=== PATIENT | female | born 1965 | race African-American/Black ===

== ENCOUNTER 2017-04-13 19:21 | Emergency (ER) | payer MEDICAID ==
[~2017-04-13] VITALS: Ht 172.7 cm; Wt 92.3 kg
[~2017-04-13 19:21] MED LIST: CLIN200T PO; Z.0.NO CURRENT MEDS
[2017-04-13 19:24] VITALS: BP 134/84; PULSE 88; RESP 16; TEMP 99; O2SAT 98
[2017-04-13] MEDS ORDERED: IBUP800T23 PO (21:47)
[2017-04-13] MEDS ORDERED: TYLETAB34 PO (21:47)
[2017-04-13] MEDS ORDERED: [UNRECOGNIZED DRUG - CODE] (21:47)
[2017-04-13] MEDS ORDERED: NYST15T TOPICAL (21:47)
[2017-04-13] MEDS ORDERED: LIDO1PAD52 TOPICAL (21:47)
[2017-04-13] MEDS ORDERED: MUPI2OIN TOPICAL (21:47)
[2017-04-13] MEDS ORDERED: HYDR12.57 PO (21:47)
[2017-04-13] MEDS ORDERED: AMIT10TA6 PO (21:47)
[2017-04-13] MEDS ORDERED: DETR4CAP PO (21:47)
[2017-04-13] MEDS ORDERED: ROPI.25 PO (21:47)
[2017-04-13] MEDS ORDERED: BLOO1STR (21:47)
[2017-04-13] MEDS ORDERED: CYAN100025 SL (21:47)
[2017-04-13] MEDS ORDERED: LIPI40TA PO (21:54)
[2017-04-13] MEDS ORDERED: METF500T PO (21:54)
[2017-04-13] MEDS ORDERED: KETO2CRE TOPICAL (21:54)
[2017-04-13] MEDS ORDERED: [UNRECOGNIZED DRUG - CODE] PO (21:54)
[2017-04-13] MEDS ORDERED: VENL1CAP38 PO (21:54)
[2017-04-13] MEDS ORDERED: FLUT1SPR5 EACH NARE (21:54)
[2017-04-13] MEDS ORDERED: VOLT1GEL4 (21:54)
[2017-04-13] MEDS ORDERED: KENAAER TOPICAL (21:54)
[2017-04-13] MEDS ORDERED: GABA600T PO (21:54)
[2017-04-13] MEDS ORDERED: TRAZ100T6 PO (21:54)
[2017-04-13] MEDS ORDERED: DEXAMETHASONE SOD PHOS 4 MG/ML VIAL IM ONE (22:00)
[2017-04-13] MEDS ORDERED: HYDROmorphone HCL PF 1 MG/ML VIAL SQ ONE (22:00)
[2017-04-13] MEDS ORDERED: PERC7.5T13 PO (22:07)
--- NOTE | 2017-04-13 22:08 | PD ---
HPI Chief Complaint: Pain: Acute or Chronic Time Seen by Provider: 21:24 Travel History International Travel<30 days: No Contact w/Intl Traveler<30days: No Traveled to known affect area: No History of Present Illness HPI The patient's 52 years old. She has rheumatoid arthritis. She has total body pain though primarily is painful in the knees hands and feet. She also describes swelling in the knees hands and feet. She reports nausea however has had no vomiting or chest pain. She denies fever. Duration of symptoms about 1 day. Tylenol 3 at home was not very helpful. The pains have a shooting quality. She has been in [place] for one week and is going home to [place] tomorrow. She's had no fever. She reports initiation of a new rheumatoid drug however is not sure of the specific name. PFSH Past Medical History Depression: Yes High Cholesterol: Yes Diabetes: Yes Patient Takes Glucophage: Yes (METFORMIN) Diminished Hearing: No GERD: Yes Genitourinary: Yes (URINARY INCONTINENCE) Hypertension: Yes Medical other: Yes (B12 DEFICIENCY) Musculoskeletal: Yes (CHRONIC LOWER LEG PAIN ) Neurologic: Yes (RESTLESS LEG) Integumentary: Yes (CANDIDAL SKIN INFECTION ) ?: Not LMP: 2 YEARS AGO Menopausal: Yes Tubal Ligation: Yes Past Surgical History Gynecologic Surgery: Yes () Tonsillectomy: Yes Social History Alcohol Use: No Tobacco Use: Yes (1 PACK WEEKLY) Substance Use: No Allergies-Medications (Allergen,Severity, Reaction): Coded Allergies: No Known Allergies (Verified , 04/13/17) Reported Meds & Prescriptions Reported Meds & Active Scripts Active Reported Effexor XR 24 HR (Venlafaxine HCl) 37.5 Mg Cap 37.5 Mg PO DAILY Kenalog Topical (Triamcinolone Topical) 0.147 Mg/Gm Aer 1 TOPICAL BID Trazodone (Trazodone HCl) 100 Mg Tablet 100 Mg PO HS Trexall (Methotrexate) 10 Mg Tab 10 Mg PO Q7D Metformin (Metformin HCl) 500 Mg Tab 500 Mg PO BIDPC With meals Ketoconazole Topical 2% Cream 1 Applic TOPICAL DAILY Gabapentin 600 Mg Tab 600 Mg PO TID Flonase Nasal [place] (Fluticasone Nasal [place]) 50 Mcg/Act [place] 50 Mcg EACH NARE BID Voltaren (Diclofenac Sodium) 100 Gm Gel..gram. Lipitor (Atorvastatin Calcium) 40 Mg Tab 40 Mg PO HS Nyamyc Topical (Nystatin Topical) 15 Gram Pow Nystatin Topical (Nystatin) 100,000 unit/gm Cream 1 Applic TOPICAL BID Mupirocin Topical (Mupirocin) 2 % Oint 1 Applic TOPICAL BID Lidocaine Patch 12 HR (Lidocaine) 5 % Patch 1 Patch TOPICAL DAILY PRN Remove patch after 12 hours Ibuprofen 800 Mg Tab 800 Mg PO Q8H PRN Amitriptyline (Amitriptyline HCl) 10 Mg Tab 10 Mg PO HS Requip (Ropinirole HCl) 0.25 Mg Tab 0.25 Mg PO HS Hydrochlorothiazide 12.5 Mg Cap 12.5 Mg PO DAILY Detrol LA (Tolterodine Tartrate) 4 Mg Cap 4 Mg PO HS B-12 (Cyanocobalamin) 1,000 Mcg Subl 1,000 Mcg SL DAILY Accu-Chek Guide Test Strip (Blood Sugar Diagnostic) 1 Each Strip Tylenol-Codeine #3 (Acetaminophen-Codeine) 300-30 mg Tab 1 Tab PO DAILY PRN Review of Systems Except as stated in HPI: all other systems reviewed are Neg General / Constitutional: No: Fever Physical Exam Narrative GENERAL: 52-year-old female well-nourished well-developed pleasant SKIN: Focused skin assessment warm/dry. HEAD: Atraumatic. Normocephalic. EYES: Pupils equal and round. No scleral icterus. No injection or drainage. ENT: No nasal bleeding or discharge. Mucous membranes pink and moist. NECK: Trachea midline. No JVD. CARDIOVASCULAR: Regular rate and rhythm. No murmur appreciated. RESPIRATORY: No accessory muscle use. Clear to auscultation. Breath sounds equal bilaterally. GASTROINTESTINAL: Abdomen soft, non-tender, nondistended. Hepatic and splenic margins not palpable. MUSCULOSKELETAL: Minimal joint swelling symmetric involving the ankles knees as well as the hands and feet. No asymmetry of the calfs. Patient is ambulatory. NEUROLOGICAL: Awake and alert. No obvious cranial nerve deficits. Motor grossly within normal limits. Normal speech. PSYCHIATRIC: Appropriate mood and affect; insight and judgment normal. Data Data Last Documented VS Vital Signs Date Time Temp Pulse Resp B/P Pulse Ox O2 Delivery O2 Flow Rate FiO2 04/13/17 19:24 99.0 88 16 134/84 98 Room Air vital signs reviewed Orders Hydromorphone Pf Inj (Dilaudid Pf Inj) (04/13/17 22:00) Dexamethasone Inj (Decadron Inj) (04/13/17 22:00) MDM Medical Decision Making Medical Screen Exam Complete: Yes Emergency Medical Condition: Yes Differential Diagnosis Rheumatoid flare, allergies, arthritis, chronic pain Narrative Course The patient has rheumatoid arthritis and his symptoms consistent with a rheumatoid flare. We'll treat her pain and give her some steroids. She has follow-up with a harvest worker fruit in [place] where she is flying to tomorrow. Patient is agreeable with plan. Diagnosis Primary Impression: Rheumatoid disease Qualified Code: M06.9 - Rheumatoid arthritis, involving unspecified site, unspecified rheumatoid factor presence Referrals: [facility] 2 days Additional Instructions: You have a choice when it comes to health care, and we are glad that you chose [facility]. Hopefully, we have met your expectations on today's visit. You are welcome to return to [facility] at any time, as we are committed to meeting the health care needs of our community. Med/Other Pt SpecificInfo: Prescription(s) given Scripts Oxycodone-Acetaminophen (Percocet)7.5-325 mg Tab1 Tab PO Q4H PRN (PAIN SCALE 6 TO 10) #20 TAB Ref 0 Prov:Jose C Kam MD 04/13/17 Disposition: 01 DISCHARGE HOME Condition: Stable Jose C Kam MD Apr 13, 2017 22:08
== END 2017-04-13 22:53 | disposition home or self-care (01) ==
LOC: NEPD 19:21
DX: M06.9 Rheumatoid arthritis, unspecified (principal); Z72.0 Tobacco use
CPT/HCPCS: 96372; 99284; J1100; J1170